=== PATIENT | male | born 1955 | race Caucasian/White ===

== ENCOUNTER 2017-01-29 10:25 | Emergency (ER) | payer MEDICAID ==
[2017-01-29] MEDS ORDERED: PHENAZOPYRIDINE HCL 200 MG TAB ONE (10:45)
[2017-01-29] MEDS ORDERED: PHENAZOPYRIDINE HCL 200 MG TAB PO ONE (11:05)
[2017-01-29 11:14] LABS: COLOR PALE YELLOW; LEUKOCYTE ESTERASE,URINE NEGATIVE (NEGATIVE); NITRITE,URINE NEGATIVE (NEGATIVE)
[2017-01-29 12:12] VITALS: BP 135/76; PULSE 81; RESP 18; TEMP 98.6; O2SAT 98
--- NOTE | 2017-01-29 12:21 | EDPHY ---
H & P Time Seen by Provider: 01/29/17 10:38 HPI/ROS: HPI Unable to urinate. 61-year-old male by private vehicle with his . He has a history of prostatic hypertrophy and intermittent urinary retention. He has been on finasteride for several months. He also takes Flomax. His urologist is Dr. Higuera up in [place] where he lives. He had a Bautista catheter placed this last Sunday in [place]. It was then removed several days later. He reports that he again has urinary retention with inability to urinate at all since 8:00 a.m.. He feels suprapubic pain and pressure as well as spasming. No fever. No back pain. No vomiting or other complaints. ROS: Constitutional: No fever, no chills. No weakness. Eyes: No discharge. No changes in vision. ENT: No sore throat. No nasal congestion or rhinorrhea. Respiratory: No cough. No shortness of breath. Cardiac: No chest pain, no palpitations. Gastrointestinal: No abdominal pain, no vomiting, no diarrhea. Genitourinary: No hematuria. No dysuria or increased frequency with urination. Musculoskeletal: No back pain. No neck pain. No myalgias or arthralgias. Skin: No rashes. Neurological: No headache. No focal weakness or altered sensation. Past medical history: Prostate enlargement. As above. Social history: Nonsmoker. Here with his . Physical Exam: General Appearance: Alert, he appears uncomfortable. This patient is responding to questions appropriately and in full sentences. This patient appears well-hydrated and well-nourished. Eyes: Pupils equal and round no pallor or injection. No lid edema, erythema or injection. Respiratory: There are no retractions, lungs are clear to auscultation with good air movement bilaterally. Cardiovascular: Regular rate and rhythm. No murmur. Gastrointestinal: Abdomen is soft with suprapubic fullness and discomfort with palpation, no masses, bowel sounds normal. No focal tenderness at McBurney's point. No Krueger sign. Neurological: Motor sensory function is grossly intact. Cranial nerves are normal. Gait is normal. Skin: Warm and dry, no rashes. Musculoskeletal: Neck is supple and nontender. Extremities are symmetrical. All joints range without pain or impingement. Psychiatric: No agitation. No depression. Database: EKG: Imaging: Procedures: Emergency department course: Ultrasound reveals about 500 cc of urine in his bladder. A Bautista catheter was placed. He had brisk flow and significant relief after Bautista catheter placement. He also was given 200 mg of Pyridium. 11:55 p.m., patient re-evaluated. 800 cc of clear urine in his collection bag. He reports feeling much better. Results of his urinalysis discussed with him and his . Plan will be to have him follow up with Urology, Dr. Christianson at the [facility] for re-evaluation, ongoing management and removal of his Bautista catheter when appropriate. He is in agreement with this. He will also contact his urologist in [place]. Return to emergency department precautions reviewed with him. All of his questions were answered. He was discharged in good condition. Differential Diagnosis: The differential diagnosis on this patient includes but is not limited to history of prostatic hypertrophy, acute urinary retention. Urinary tract infection unlikely. This represents a partial list of diagnoses considered. These considerations are based on history, physical exam, past history, reassessment and diagnostic testing. Smoking Status: Never smoked Constitutional: Initial Vital Signs Temperature (C) 36.8 C 01/29/17 10:25 Heart Rate 105 H 01/29/17 10:25 Respiratory Rate 20 01/29/17 10:25 Blood Pressure 174/123 H 01/29/17 10:25 O2 Sat (%) 95 01/29/17 10:25 O2 Delivery Mode Room Air Allergies/Adverse Reactions: No Known Allergies Allergy (Unverified 01/29/17 10:28) Home Medications: Medication Instructions Recorded Flomax 01/29/17 Medical Decision Making - Data Points Laboratory Results: 01/29/17 11:05 Urine Color PALE YELLOW Urine Appearance CLEAR Urine pH 6.0 (5.0-7.5) Ur Specific Ulysses 1.005 (1.002-1.030) Urine Protein NEGATIVE (NEGATIVE) Urine Ketones NEGATIVE (NEGATIVE) Urine Blood 1+ H (NEGATIVE) Urine Nitrate NEGATIVE (NEGATIVE) Urine Bilirubin NEGATIVE (NEGATIVE) Urine Urobilinogen NEGATIVE EU EU (0.2-1.0) Ur Leukocyte Esterase NEGATIVE (NEGATIVE) Urine RBC 1-3 /hpf /hpf (0-3) Urine WBC 1-3 /hpf /hpf (0-3) Ur Epithelial Cells NONE SEEN /lpf /lpf (NONE-1+) Urine Glucose NEGATIVE (NEGATIVE) Medications Given: Discontinued Medications Phenazopyridine HCl (Pyridium) 200 mg PO EDNOW ONE Stop: 01/29/17 11:06 Last Admin: 01/29/17 11:07 Dose: 200 mg Departure - Departure Disposition: Home, Routine, Self-Care Clinical Impression: Acute urinary retention, History of BPH Condition: Good Instructions: Phenazopyridine (By mouth) Additional Instructions: Read and follow provided instructions. Follow-up with Urology as discussed at the [facility] as discussed. Call her office this afternoon for appointment time. Explain what happened in the emergency department, that you have a Bautista catheter and this is for an emergency department follow-up. Take your medication as prescribed. Return to the emergency department for worsening pain, fever, inability to urinate or other serious concerns. Referrals: Romina Christianson MD [Medical Doctor] - As per Instructions
== END 2017-01-29 12:48 | disposition home or self-care (01) ==
PROC: 0T9B70Z Drainage of Bladder with Drainage Device, Via Natural or Artificial Opening (ICD-10-PCS; principal; 2017-01-29)
DX: R33.9 Retention of urine, unspecified (principal); Z87.438 Personal history of other diseases of male genital organs

== ENCOUNTER → 2017-04-05 | Outpatient (CLI) | payer MEDICAID ==
[~2017-04-05] MED LIST: IOPAMIDOL (ISOVUE-300) 100 ML BTL ONE
== END ==
LOC: FIMAGING 09:36
PROVIDERS: ATTEND Urology
DX: N40.1 Benign prostatic hyperplasia with lower urinary tract symptoms (principal); N28.1 Cyst of kidney, acquired; M41.86 Other forms of scoliosis, lumbar region; M51.36 Other intervertebral disc degeneration, lumbar region; M51.37 Other intervertebral disc degeneration, lumbosacral region; M46.96 Unspecified inflammatory spondylopathy, lumbar region
CPT/HCPCS: Q9967